=== PATIENT | male | born 1985 | race Caucasian/White ===

== ENCOUNTER 2017-10-16 15:12 | Emergency (ER) | payer SELFPAY ==
[~2017-10-16] VITALS: Ht 177.8 cm; Wt 67.6 kg
[~2017-10-16 15:12] MED LIST: INDERAL60 MG PO; LEXAPRO10 MG PO; MOTRIN800 MG PO; NOHOMEMEDS; PERCOCET 5/31 TABLET PO; PREDNISONE20 MG PO; PRILOSEC40 MG PO; TAPAZOLE10 MG PO; THYROID MEDICINE PO; VALIUM2 MG PO; ZANTAC150 MG PO
[2017-10-16] MEDS ORDERED: MOTRIN800 MG PO (18:04)
[2017-10-16] MEDS ORDERED: TESSALON PERLE100 MG PO (18:04)
[2017-10-16] MEDS ORDERED: MUCINEX D ER T1 EACH PO (18:05)
[2017-10-16 18:19] VITALS: BP 130/71
== END 2017-10-16 18:19 | disposition home or self-care (01) ==
LOC: EME 15:12
DX: J06.9 Acute upper respiratory infection, unspecified (principal); H65.03 Acute serous otitis media, bilateral; J45.909 Unspecified asthma, uncomplicated; E05.00 Thyrotoxicosis with diffuse goiter without thyrotoxic crisis or storm; F41.9 Anxiety disorder, unspecified; F17.200 Nicotine dependence, unspecified, uncomplicated
CPT/HCPCS: 70360; 87651 90; 99281; 99284